=== PATIENT | male | born 1955 | race Caucasian/White ===

== ENCOUNTER 2017-04-21 04:02 | Emergency (ER) | payer BC ==
[2017-04-21] MEDS ORDERED: KETOROLAC TROMETHAMINE 30 MG/ML SOL IV ONE (04:08)
[2017-04-21] MEDS ORDERED: KETOROLAC TROMETHAMINE 30 MG/ML SOL ONE (04:09)
[2017-04-21 04:14] VITALS: RESP 20; TEMP 97.2
[2017-04-21] MEDS ORDERED: MORPHINE SULFATE 10 MG/ML SOL IV ONE ×2 (04:15→04:28)
[2017-04-21] MEDS ORDERED: MORPHINE SULFATE 10 MG/ML SOL ONE (04:16)
[2017-04-21] MEDS ORDERED: SOLUMEDROL 125 MG/2 ML 125 MG/2 ML PDS IV ONE (04:29)
[2017-04-21] MEDS ORDERED: TAMSULOSIN HYDROCHLORIDE 0.4 MG CAP PO SCH (04:30)
[2017-04-21] MEDS ORDERED: SODIUM CHLORIDE 0.9% 1000ML 1,000 ML IV ONE (04:34)
[2017-04-21] MEDS ORDERED: SODIUM CHLORIDE 0.9% FLUSH 10 ML SOL IV PRN (04:39)
[2017-04-21 04:52] LABS: BASOPHILS % (AUTO) 0 % (0-3); EOSINOPHILS % (AUTO) 0 % (0-9); HEMATOCRIT 42 % (39-53); MEAN CORPUSCULAR HGB CONC 36.7 gm/dl (32.0-36.0); MEAN CORPUSCULAR VOLUME 82 fL (80-100); MONOCYTES % (AUTO) 6.8 % (0-12); NEUTROPHILS % (AUTO) 79.8 % (37-80)
[2017-04-21 04:58] LABS: CALCIUM 8.8 mg/dl (8.5-10.1)
[2017-04-21] MEDS ORDERED: SOLUMEDROL 125 MG/2 ML 125 MG/2 ML PDS ONE (05:10)
[2017-04-21] MEDS ORDERED: TAMSULOSIN HYDROCHLORIDE 0.4 MG CAP ONE (05:12)
[2017-04-21 05:21] VITALS: O2SAT 98
[2017-04-21 06:25] LABS: APPEARANCE,URINE Clear; BILIRUBIN,URINE NEGATIVE (NEGATIVE); COLOR,URINE Yellow; GLUCOSE, URINE (UA) NEGATIVE (NEGATIVE); KETONES,URINE NEGATIVE (NEGATIVE); LEUKOCYTE ESTERASE ,URINE NEGATIVE (NEGATIVE); NITRATE,URINE NEGATIVE (NEGATIVE); OCCULT BLOOD,URINE NEGATIVE (NEG-TRACE); PH,URINE 8.5; UROBILINOGEN,URINE 0.2 (0.2-1.0 EU)
[2017-04-21 06:29] LABS: RBC,URINE 0-1 (0-3AV/HPF); WBC,URINE NEG (0-5AV/HPF)
[2017-04-21 06:50] VITALS: BP 154/68; PULSE 78
== END 2017-04-21 07:01 | disposition home or self-care (01) ==
LOC: ED 04:02
DX: M62.830 Muscle spasm of back (principal); M54.5 Low back pain; M25.552 Pain in left hip
CPT/HCPCS: 99285 ×3; 80048; 81001; 85025; J1885; J2270; J2930; 36415; 74176; 96365; 96374; 96375; 99284

== ENCOUNTER 2018-03-11 22:48 | Inpatient (IN) | payer BC ==
[2018-03-11] MEDS ORDERED: ONDANSETRON HCL 4 MG/2 ML SOL ONE (22:59)
[2018-03-11] MEDS ORDERED: MORPHINE SULFATE 10 MG/ML SOL IV ONE (23:00)
[2018-03-11] MEDS ORDERED: ONDANSETRON HCL 4 MG/2 ML SOL IV ONE (23:00)
[2018-03-11] MEDS: SODIUM CHLORIDE 0.9% 1000ML 1,000 ML IV SCH (23:00)
[2018-03-11 23:11] LABS: BASOPHILS % (AUTO) 1 % (0-3); EOSINOPHILS % (AUTO) 3 % (0-9); HEMATOCRIT 39 % (39-53); HEMOGLOBIN 13.7 gm/dl (13.5-17.7); MEAN CORPUSCULAR HEMOGLOBIN 29.7 pg (27.0-32.0); MEAN CORPUSCULAR HGB CONC 35.4 gm/dl (32.0-36.0); MEAN CORPUSCULAR VOLUME 84 fL (80-100); MONOCYTES % (AUTO) 8.7 % (0-12); NEUTROPHILS % (AUTO) 68.8 % (37-80)
[2018-03-11 23:26] LABS: ALBUMIN 3.4 gm/dl (3.4-5.0); BILIRUBIN,TOTAL 0.5 mg/dl (0.2-1.0); CALCIUM 7.6 mg/dl (8.5-10.1); CARBON DIOXIDE 27.7 mEq/L (21-32); CREATININE 1.24 mg/dl (0.80-1.30); POTASSIUM 3.8 mMol/L (3.5-5.1); TOTAL PROTEIN 6.1 gm/dl (6.4-8.2)
[2018-03-11 23:38] LABS: INR 1.08 (0.86-1.12)
[2018-03-11] MEDS ORDERED: MORPHINE SULFATE 10 MG/ML SOL ONE (23:58)
[2018-03-12] MEDS: SODIUM CHLORIDE 0.9% 1000ML 1,000 ML IV SCH ×5 (00:01→17:02)
[2018-03-12] MEDS ORDERED: TDAP VACCINE 0.5 ML SUS IM ONE ×2 (00:07→00:23)
[2018-03-12] MEDS ORDERED: MORPHINE SULFATE 10 MG/ML SOL IV PRN (01:15)
[2018-03-12] MEDS ORDERED: PROCHLORPERAZINE EDISYLATE 5 MG/ML SOL IV PRN (01:16)
[2018-03-12] MEDS: APAP/HYDROCODONE 325/5 TAB PO PRN ×6 (01:55→22:17)
[2018-03-12] MEDS: PANTOPRAZOLE SODIUM 40 MG ECT PO SCH (06:11)
[2018-03-12] MEDS: SODIUM CHLORIDE 0.9% FLUSH 10 ML SOL IV SCH ×2 (09:26→17:39)
[2018-03-12 10:18] VITALS: RESP 16
[2018-03-12 16:30] LABS: POTASSIUM 3.8 mMol/L (3.5-5.1)
[2018-03-12 16:31] LABS: CALCIUM 7.3 mg/dl (8.5-10.1); CARBON DIOXIDE 23.5 mEq/L (21-32); CREATININE 1.05 mg/dl (0.80-1.30)
[2018-03-12] MEDS ORDERED: CITALOPRAM 20 MG TAB PO SCH (21:00)
[2018-03-13] MEDS: SODIUM CHLORIDE 0.9% FLUSH 10 ML SOL IV SCH ×2 (01:40→10:12)
[2018-03-13] MEDS: APAP/HYDROCODONE 325/5 TAB PO PRN ×2 (04:41→09:15)
[2018-03-13] MEDS: SODIUM CHLORIDE 0.9% 1000ML 1,000 ML IV SCH (04:53)
[2018-03-13] MEDS: PANTOPRAZOLE SODIUM 40 MG ECT PO SCH (06:15)
[2018-03-13 07:23] LABS: BASOPHILS % (AUTO) 1 % (0-3); EOSINOPHILS % (AUTO) 3 % (0-9); HEMATOCRIT 35 % (39-53); HEMOGLOBIN 12.2 gm/dl (13.5-17.7); LYMPHOCYTES % (AUTO) 22.2 % (10-50); MEAN CORPUSCULAR HEMOGLOBIN 29.6 pg (27.0-32.0); MEAN CORPUSCULAR VOLUME 85 fL (80-100); MONOCYTES % (AUTO) 13.7 % (0-12); NEUTROPHILS % (AUTO) 59.9 % (37-80)
[2018-03-13 07:34] LABS: CALCIUM 7.4 mg/dl (8.5-10.1); CARBON DIOXIDE 25.8 mEq/L (21-32); CREATININE 0.89 mg/dl (0.80-1.30); POTASSIUM 3.7 mMol/L (3.5-5.1)
[2018-03-13 07:59] VITALS: BP 111/68; TEMP 98.2
[2018-03-13] MEDS ORDERED: DOCUSATE SODIUM 100 MG SGL PO PRN (08:16)
[2018-03-13 08:37] VITALS: PULSE 76; O2SAT 97
[2018-03-13] MEDS ORDERED: DOCUSATE SODIUM 100 MG SGL PO SCH (09:00)
== END 2018-03-13 11:10 | disposition home or self-care (01) | DRG 135 ==
LOC: ED 22:48 → ACUTE CARE 03-12 01:01
PROVIDERS: ADMIT Family Medicine; ATTEND Family Medicine
PROC: F01K5ZZ Range of Motion and Joint Integrity Assessment of Musculoskeletal System - Upper Back / Upper Extremity (ICD-10-PCS; principal; 2018-03-12)
PROC: F01L5ZZ Range of Motion and Joint Integrity Assessment of Musculoskeletal System - Lower Back / Lower Extremity (ICD-10-PCS; 2018-03-12)
PROC: F0134ZZ Motor Function Assessment of Neurological System - Whole Body (ICD-10-PCS; 2018-03-12)
DX: S22.42XA Multiple fractures of ribs, left side, initial encounter for closed fracture (principal); M79.631 Pain in right forearm; M79.652 Pain in left thigh; M79.662 Pain in left lower leg; M79.661 Pain in right lower leg; R40.2362 Coma scale, best motor response, obeys commands, at arrival to emergency department; R40.2142 Coma scale, eyes open, spontaneous, at arrival to emergency department; R40.2252 Coma scale, best verbal response, oriented, at arrival to emergency department; W55.29XA Other contact with cow, initial encounter
CPT/HCPCS: 36415; 71250; 73552; 73590; 74176; 80048; 80053; 85018; 85025; 85610; 90471; 90715; 93005; 93012; 94150; 94640; 96365; 96374; 96375; 99222; 99285; J0780; J2270; J2405; A9270-GY